=== PATIENT | female | born 2000 | race Caucasian/White ===

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

== ENCOUNTER 2022-03-17 15:46 | Emergency (ER) | payer OTHER ==
[~2022-03-17] VITALS: Ht 175.3 cm; Wt 72.6 kg
[2022-03-17] MEDS ORDERED: CEPH500 PO (16:18)
== END 2022-03-17 16:45 | disposition home or self-care (01) ==
LOC: ER 15:46
DX: L02.413 Cutaneous abscess of right upper limb (principal); L03.113 Cellulitis of right upper limb; Z87.891 Personal history of nicotine dependence
CPT/HCPCS: A9270

== ENCOUNTER 2022-07-30 20:47 | Emergency (ER) | payer OTHER ==
[~2022-07-30] VITALS: Ht 175.3 cm; Wt 72.6 kg
[2022-07-30] MEDS ORDERED: Amoxicillin875 MG PO (22:23)
== END 2022-07-30 22:32 | disposition home or self-care (01) ==
LOC: ER 20:47
DX: J02.0 Streptococcal pharyngitis (principal)
CPT/HCPCS: 87430; A9270

== ENCOUNTER → 2022-09-13 | Outpatient (CLI) | payer OTHER ==
[~2022-09-13] MED LIST changes: +Amoxicillin875 MG PO
[2022-09-14 10:36] LABS: Candida species (DNA Probe) Negative (NEGATIVE); G. vaginalis (DNA Probe) Positive (NEGATIVE); T. vaginalis (DNA Probe) Negative (NEGATIVE)
[2022-09-15 08:11] LABS: CHLAMYDIA TRACHOMATIS, NAA Negative (Negative)
== END | disposition home or self-care (01) ==
LOC: LAB 14:02 → LAB SHORT 14:02
PROVIDERS: Advanced Practice Midwife
DX: Z11.3 Encounter for screening for infections with a predominantly sexual mode of transmission (principal); N76.0 Acute vaginitis
CPT/HCPCS: 87480; 87491; 87510; 87591; 87660

== ENCOUNTER → 2022-10-27 | Outpatient (CLI) | payer OTHER ==
[2022-10-29 01:09] LABS: CHLAMYDIA TRACHOMATIS, NAA Negative (Negative)
== END | disposition home or self-care (01) ==
LOC: LAB 11:55 → LAB SHORT 11:55
PROVIDERS: Advanced Practice Midwife
DX: Z11.3 Encounter for screening for infections with a predominantly sexual mode of transmission (principal)
CPT/HCPCS: 87491; 87591

== ENCOUNTER → 2022-11-24 | Outpatient (CLI) | payer OTHER | END | disposition home or self-care (01) | LOC: LAB SHORT 15:20 → LAB 15:20 | DX: N39.0 Urinary tract infection, site not specified (principal) | CPT/HCPCS: 87086 ==

== ENCOUNTER → 2023-01-10 | Outpatient (CLI) | payer OTHER | END | disposition home or self-care (01) | LOC: LAB 18:14 → LAB SHORT 18:14 | DX: N39.0 Urinary tract infection, site not specified (principal) | CPT/HCPCS: 87077; 87086; 87186 ==

== ENCOUNTER 2023-05-29 14:53 | Inpatient (IN) | payer OTHER ==
[2023-05-29] VITALS (14 sets, daily range): BP systolic 96–130; BP diastolic 67–87
[~2023-05-29] VITALS: Ht 175.3 cm; Wt 80.9 kg
[2023-05-29] MEDS ORDERED: BIKTARVY 50-201 EAC1 PO (16:02)
[2023-05-29 16:25] LABS: BASOPHILS ABSOLUTE AUTO 0.03 K/mm3 (0.00-0.23); BASOPHILS PERCENT AUTO 0 % (0-2); EOSINOPHILS PERCENT AUTO 0 % (0-6); Hematocrit 34.6 % (33.0-51.0); Hemoglobin 11.6 g/dL (11.5-16.0); IMMATURE GRAN ABSOLUTE AUTO 0.09 K/mm3 (0.00-0.10); IMMATURE GRAN PERCENT AUTO 1 % (0-1); LYMPHOCYTES ABSOLUTE AUTO 1.66 K/mm3 (0.84-5.20); LYMPHOCYTES PERCENT AUTO 11 % (21-46); MONOCYTES ABSOLUTE AUTO 0.94 K/mm3 (0.16-1.47); MONOCYTES PERCENT AUTO 6 % (4-13); Mean Corpuscular HGB 27.1 pg (26.0-34.0); Mean Corpuscular HGB Conc 33.5 g/dL (31.5-36.5); Mean Corpuscular Volume 81 fL (80-100); Mean Platelet Volume 12.6 fL (9.1-12.4); NEUTROPHILS ABSOLUTE AUTO 12.52 K/mm3 (1.96-9.15); NEUTROPHILS PERCENT AUTO 82 % (41-73); Platelet Count 198 K/mm3 (150-400); RDW Coefficient Variation 15.6 % (11.7-14.2); RDW Standard Deviation 45.6 fL (35.1-46.3); Red Blood Cell Count 4.28 M/mm3 (3.80-5.20); White Blood Cell Count 15.24 K/mm3 (4.00-11.30)
[2023-05-29 16:31] LABS: U Amphetamine Screen DETECTED; U Barbituate Screen Not Detected; U Benzodiazapine Screen Not Detected; U Buprenorphine Screen Not Detected; U Cannabinoids Screen Not Detected; U Cocaine Screen Not Detected; U Methadone Screen Not Detected; U Methamphetamine Screen DETECTED; U Opiates Screen Not Detected; U Oxycodone Screen Not Detected; U Phencyclidine Screen Not Detected; U Propoxyphene Screen Not Detected
[2023-05-29 16:44] LABS: Albumin, Blood 1.8 g/dL (3.4-5.0); Albumin/Globulin Ratio 0.4 (0.8-1.8); Bilirubin, Total 0.4 mg/dL (0.1-1.0); Bun/Creatinine Ratio 11.7 (12.0-20.0); Calcium, Blood 8.5 mg/dL (8.5-10.1); Creatinine, Blood 0.94 mg/dL (0.40-1.00); Globulin, Blood 4.9 g/dL (2.2-4.0); Potassium, Blood 3.5 mmol/L (3.5-5.5); Total Protein, Blood 6.7 g/dL (6.4-8.2)
--- NOTE | 2023-05-29 18:02 | NUR ---
05/29/231801 Riki Riggins I PT ARRIVED TO OR. PROVIDER PERFORMED A PELVIC EXAM AND DETERMINED THAT PT HAD PROGRESSED. A VAGINAL DELIVERY WAS THEN PERFORMED. NO SURGICAL INTERVENTIONS PROVIDED. UMBILICAL CORD BLOOD GIVEN TO NURSERY STAFF.
[2023-05-30 00:34] VITALS: BP 128/75
--- NOTE | 2023-05-30 01:01 | NUR ---
2044: PATIENT REFUSED FUNDAL MASSAGE. INFORMED PATIENT ABOUT COMPLICATIONS OF NOT GETTING FUNDAL MASSAGE SUCH HEMORRHAGE. PATIENT STATES "I DONT THINK I AM GOING TO BLEED, I AM FINE."
--- NOTE | 2023-05-30 04:21 | NUR ---
0125: CONTACTED [facility]PS, TALKED TO FERMIN KATZ: SCREENING REPORT #[id number]
[2023-05-30 05:59] VITALS: BP 110/70
[2023-05-30 08:41] VITALS: BP 119/88
--- NOTE | 2023-05-30 10:31 | NUR ---
PATIENT HAS BEEN ASLEEP MOST OF THIS SHIFT, WILL AROUSE BRIEFLY FOR A BLOOD PRESSURE, REFUSES FUNDUS CHECKS, SIGNED PAPERWORK FOR PATERNITY AND CERTIFICATE ATTEMPTED TO DO D/C INSTRUCTIONS, CARMENCITA REYNOLDS IN ROOM COOPERATIVE AND ALERT INFORMATION GIVEN TO BOTH FAMILY MEMBERS, ED FROM [facility] CALLED SAID HE WOULD BE IN TO SEE PATIENT TODAY IF SHE IS STILL HERE, PATIENT IS DISCHARGED BUT HAS NOT BEEN AWAKE ENOUGH TO LEAVE
[2023-05-30 11:30] VITALS: BP 126/88
--- NOTE | 2023-05-30 12:13 | NUR ---
ED HERE FROM [facility]PS TO SEE PATIENT, PATIENT FALLING ASLEEP THROUGH MOST OF VISIT, FOB ADMITTING TO USING WELL HE IS AWAKE AND ALERT, VSS ON PATIENT, AGAIN TOLD PATIENT SHE IS DISCHARGED AND CAN GO SHE WILL NOT ACHNOWLEDGE RN AND FALLS BACK ASLEEP,
--- NOTE | 2023-05-30 14:14 | NUR ---
PATIENT ASLEEP WILL AWAKE WITH VERBAL COMMANDS, ALONE IN ROOM AT THIS TIME HAS BEEN TOLD SHE IS DISCHARGED, NO RESPONSE AND BACK TO SLEEP
[2023-05-30 14:15] VITALS: BP 139/72
[2023-05-30 15:36] VITALS: BP 126/83
--- NOTE | 2023-05-30 15:36 | NUR ---
PATIENT ALONE IN ROOM ASLEEP WILL WAKE WITH MULTIPLE VERBAL QUES, AGAIN TOLD HER SHE HAS BEEN DISCHARED SHE STATES SHE DOESNT WANT TO GO BECAUSE THEY WILL MAKE HER GET HIGH ENCOURAGED TO GO TO ANOTHER LOCATION, SHE IS CURRENTLY TRYING TO FIND A RIDE, RN WILL CALL A TAXI IF UNABLE TO FIND RIDE
--- NOTE | 2023-05-30 16:28 | NUR ---
patient was told additional 3 more times she has been discharge for hours and asked if she had a ride she said no, she gave the addressof [address] in [place], taxi was called, patient refused to get up and get dressed, after continuing to let her know a Taxi was called and is here to pick her up provided by [employer] she got up and planned to wear hospital gown out, RN instructed her she needed to get dressed she stated she was to tired RN offered to help her get dressed she said she would do it herself and got dressed, 2 RNs packed up her belongings and waited with her for taxi to come, patient and belongings loaded into taxi and patient d/c to requested address
--- NOTE | 2023-06-01 09:43 | NUR ---
PPFU - PT DID NOT COME TO SCHEDULED PPFU. RN CALLED PHONE NUMBER LISTED, PT'S MOM ANSWERED PHONE AND STATES "DAMARIS IS ON HER WAY TO [place] TO SEE BABY". PT'S MOM STATES SHE WILL GIVE HER THE MESSAGE TO CALL BACK TO RESCHEDULE F/U.
== END 2023-05-30 16:20 | disposition home or self-care (01) | DRG 806 ==
LOC: OBS 14:53 → BC 14:55 → OBS 15:22 → BC 23:22
PROVIDERS: ADMIT Obstetrics & Gynecology
PROC: 3E0R3BZ Introduction of Anesthetic Agent into Spinal Canal, Percutaneous Approach (ICD-10-PCS; 2023-05-29)
PROC: 00HU33Z Insertion of Infusion Device into Spinal Canal, Percutaneous Approach (ICD-10-PCS; 2023-05-29)
PROC: 0KQM0ZZ Repair Perineum Muscle, Open Approach (ICD-10-PCS; 2023-05-29)
PROC: 10E0XZZ Delivery of Products of Conception, External Approach (ICD-10-PCS; principal; 2023-05-29 17:30)
DX: O99.344 Other mental disorders complicating childbirth (principal); O98.42 Viral hepatitis complicating childbirth; Z37.0 Single live birth; O99.324 Drug use complicating childbirth; O98.72 Human immunodeficiency virus [HIV] disease complicating childbirth; F41.8 Other specified anxiety disorders; Z21 Asymptomatic human immunodeficiency virus [HIV] infection status; F11.90 Opioid use, unspecified, uncomplicated; F15.90 Other stimulant use, unspecified, uncomplicated; F12.90 Cannabis use, unspecified, uncomplicated; O99.334 Smoking (tobacco) complicating childbirth; F17.210 Nicotine dependence, cigarettes, uncomplicated; B18.2 Chronic viral hepatitis C; O69.1XX0 Labor and delivery complicated by cord around neck, with compression, not applicable or unspecified; O70.1 Second degree perineal laceration during delivery; Z79.899 Other long term (current) drug therapy; Z3A.39 39 weeks gestation of pregnancy; Z59.00 Homelessness unspecified
CPT/HCPCS: 36415; 80053; 85025; 86317; 86592; 86850; 86900; 86901; 86923; A9270; J0456; J0690; J2590; J2765; J3010; J7050; J7120

== ENCOUNTER → 2023-10-12 | Outpatient (CLI) | payer OTHER ==
[~2023-10-12] MED LIST changes: +BIKTARVY 50-201 EAC1 PO
== END ==
LOC: LAB SHORT 11:42 → LAB 11:42
DX: J02.9 Acute pharyngitis, unspecified (principal)
CPT/HCPCS: 87081

== ENCOUNTER 2024-05-24 15:07 | Emergency (ER) | payer OTHER ==
[~2024-05-24] VITALS: Ht 175.3 cm; Wt 70.3 kg
[2024-05-24 15:16] VITALS: BP 99/73
[2024-05-24] MEDS ORDERED: NS 1,000 ML IV SCH (15:30)
[2024-05-24] MEDS ORDERED: CefTRIAXone Sodium 1,000 MG in NS 100 ML IV ONE (15:35)
[2024-05-24 16:40] LABS: BASOPHILS ABSOLUTE AUTO 0.05 K/mm3 (0.00-0.23); BASOPHILS PERCENT AUTO 0 % (0-2); EOSINOPHILS ABSOLUTE AUTO 0.08 K/mm3 (0.00-0.68); EOSINOPHILS PERCENT AUTO 1 % (0-6); Hematocrit 39.2 % (33.0-51.0); Hemoglobin 12.6 g/dL (11.5-16.0); IMMATURE GRAN ABSOLUTE AUTO 0.03 K/mm3 (0.00-0.10); IMMATURE GRAN PERCENT AUTO 0 % (0-1); LYMPHOCYTES ABSOLUTE AUTO 3.07 K/mm3 (0.84-5.20); LYMPHOCYTES PERCENT AUTO 25 % (21-46); MONOCYTES ABSOLUTE AUTO 0.82 K/mm3 (0.16-1.47); MONOCYTES PERCENT AUTO 7 % (4-13); Mean Corpuscular HGB Conc 32.1 g/dL (31.5-36.5); Mean Corpuscular Volume 90 fL (80-100); Mean Platelet Volume 9.2 fL (9.1-12.4); NEUTROPHILS ABSOLUTE AUTO 8.46 K/mm3 (1.96-9.15); NEUTROPHILS PERCENT AUTO 68 % (41-73); Platelet Count 384 K/mm3 (150-400); RDW Coefficient Variation 14.6 % (11.7-14.2); RDW Standard Deviation 47.9 fL (35.1-46.3); Red Blood Cell Count 4.34 M/mm3 (3.80-5.20); White Blood Cell Count 12.51 K/mm3 (4.00-11.30)
[2024-05-24 16:43] LABS: Albumin, Blood 3.5 g/dL (3.4-5.0); Albumin/Globulin Ratio 0.7 (0.8-1.8); Bilirubin, Total 0.5 mg/dL (0.1-1.0); Bun/Creatinine Ratio 11.3 (12.0-20.0); Calcium, Blood 9.3 mg/dL (8.5-10.1); Creatinine, Blood 0.53 mg/dL (0.40-1.00); Globulin, Blood 5.1 g/dL (2.2-4.0); Potassium, Blood 4.1 mmol/L (3.5-5.5); Total Protein, Blood 8.6 g/dL (6.4-8.2)
[2024-05-24] MEDS ORDERED: CEPH500 PO (16:52)
[2024-05-24] MEDS ORDERED: Bactrim Ds Tab1 EACH PO (16:52)
== END 2024-05-24 17:12 | disposition home or self-care (01) ==
LOC: ER 15:07
PROVIDERS: Physician Assistant
DX: L03.114 Cellulitis of left upper limb (principal); Z87.891 Personal history of nicotine dependence
CPT/HCPCS: 73120; 80053; 85025; 96365; 99283-25; J0696; J7030

== ENCOUNTER 2024-05-25 14:19 | Emergency (ER) | payer OTHER ==
[~2024-05-25] VITALS: Ht 175.3 cm; Wt 59.0 kg
[~2024-05-25 14:19] MED LIST changes: +Bactrim Ds Tab1 EACH PO
[2024-05-25 14:32] VITALS: BP 113/70
== END 2024-05-25 15:51 | disposition left against medical advice (07) ==
LOC: ER 14:19
DX: M79.89 Other specified soft tissue disorders (principal); Z53.21 Procedure and treatment not carried out due to patient leaving prior to being seen by health care provider
CPT/HCPCS: 99281

== ENCOUNTER 2024-05-25 19:10 | Emergency (ER) | payer OTHER ==
[~2024-05-25] VITALS: Ht 170.2 cm; Wt 81.7 kg
[2024-05-25] MEDS ORDERED: Ketorolac Tromethamine 30mg Vial IV ONE (20:00)
[2024-05-25 20:38] LABS: BASOPHILS ABSOLUTE AUTO 0.04 K/mm3 (0.00-0.23); BASOPHILS PERCENT AUTO 0 % (0-2); EOSINOPHILS PERCENT AUTO 1 % (0-6); Hematocrit 35.5 % (33.0-51.0); Hemoglobin 11.6 g/dL (11.5-16.0); IMMATURE GRAN ABSOLUTE AUTO 0.01 K/mm3 (0.00-0.10); IMMATURE GRAN PERCENT AUTO 0 % (0-1); LYMPHOCYTES ABSOLUTE AUTO 2.83 K/mm3 (0.84-5.20); LYMPHOCYTES PERCENT AUTO 30 % (21-46); MONOCYTES ABSOLUTE AUTO 0.54 K/mm3 (0.16-1.47); MONOCYTES PERCENT AUTO 6 % (4-13); Mean Corpuscular HGB Conc 32.7 g/dL (31.5-36.5); Mean Corpuscular Volume 89 fL (80-100); Mean Platelet Volume 9.5 fL (9.1-12.4); NEUTROPHILS ABSOLUTE AUTO 6.06 K/mm3 (1.96-9.15); NEUTROPHILS PERCENT AUTO 63 % (41-73); Platelet Count 384 K/mm3 (150-400); RDW Coefficient Variation 14.5 % (11.7-14.2); RDW Standard Deviation 47.1 fL (35.1-46.3); White Blood Cell Count 9.58 K/mm3 (4.00-11.30)
[2024-05-25 20:42] LABS: Albumin/Globulin Ratio 0.7 (0.8-1.8); Bilirubin, Total 0.3 mg/dL (0.1-1.0); Bun/Creatinine Ratio 9.3 (12.0-20.0); Calcium, Blood 8.7 mg/dL (8.5-10.1); Creatinine, Blood 0.65 mg/dL (0.40-1.00); Globulin, Blood 4.3 g/dL (2.2-4.0); Potassium, Blood 3.7 mmol/L (3.5-5.5); Total Protein, Blood 7.3 g/dL (6.4-8.2)
[2024-05-26] MEDS ORDERED: CefTRIAXone 1000 MG Vial IM ONE (00:25)
[2024-05-26] MEDS ORDERED: CefTRIAXone Sodium 1,000 MG in NS 100 ML IV ONE (00:25)
[2024-05-26 00:57] VITALS: BP 108/68
== END 2024-05-26 00:58 | disposition home or self-care (01) ==
LOC: ER 19:10
PROVIDERS: Physician Assistant
DX: L03.012 Cellulitis of left finger (principal); L02.512 Cutaneous abscess of left hand; Z87.891 Personal history of nicotine dependence
CPT/HCPCS: 73201; 80053; 85025; 96365; 96375; 99284-25; J0696; J1885; Q9967

== ENCOUNTER 2024-06-27 23:47 | Observation (INO) | payer OTHER ==
[~2024-06-27] VITALS: Ht 172.7 cm; Wt 67.4 kg
[2024-06-28 00:47] LABS: BASOPHILS ABSOLUTE AUTO 0.06 K/mm3 (0.00-0.23); BASOPHILS PERCENT AUTO 0 % (0-2); EOSINOPHILS ABSOLUTE AUTO 0.04 K/mm3 (0.00-0.68); EOSINOPHILS PERCENT AUTO 0 % (0-6); Hematocrit 42.6 % (33.0-51.0); Hemoglobin 13.8 g/dL (11.5-16.0); IMMATURE GRAN ABSOLUTE AUTO 0.07 K/mm3 (0.00-0.10); IMMATURE GRAN PERCENT AUTO 0 % (0-1); LYMPHOCYTES ABSOLUTE AUTO 3.19 K/mm3 (0.84-5.20); LYMPHOCYTES PERCENT AUTO 18 % (21-46); MONOCYTES ABSOLUTE AUTO 1.29 K/mm3 (0.16-1.47); MONOCYTES PERCENT AUTO 7 % (4-13); Mean Corpuscular HGB 28.3 pg (26.0-34.0); Mean Corpuscular HGB Conc 32.4 g/dL (31.5-36.5); Mean Corpuscular Volume 88 fL (80-100); Mean Platelet Volume 9.5 fL (9.1-12.4); NEUTROPHILS ABSOLUTE AUTO 13.03 K/mm3 (1.96-9.15); NEUTROPHILS PERCENT AUTO 74 % (41-73); Platelet Count 359 K/mm3 (150-400); RDW Coefficient Variation 15.6 % (11.7-14.2); RDW Standard Deviation 50.2 fL (35.1-46.3); Red Blood Cell Count 4.87 M/mm3 (3.80-5.20); White Blood Cell Count 17.68 K/mm3 (4.00-11.30)
[2024-06-28 01:08] LABS: Albumin, Blood 3.4 g/dL (3.4-5.0); Albumin/Globulin Ratio 0.6 (0.8-1.8); Bilirubin, Total 0.7 mg/dL (0.1-1.0); Bun/Creatinine Ratio 20.6 (12.0-20.0); Calcium, Blood 9.7 mg/dL (8.5-10.1); Creatinine, Blood 0.68 mg/dL (0.40-1.00); Globulin, Blood 5.5 g/dL (2.2-4.0); Potassium, Blood 3.8 mmol/L (3.5-5.5); Total Protein, Blood 8.9 g/dL (6.4-8.2)
[2024-06-28] MEDS ORDERED: NS 1,000 ML IV SCH (02:40)
[2024-06-28] MEDS ORDERED: CefTRIAXone Sodium 1,000 MG in NS 50 ML IV ONE (02:40)
[2024-06-28] MEDS ORDERED: Diphth,Pertuss(Acell),Tet Vac 0.5 ML VIAL IM ONE (02:45)
[2024-06-28] MEDS ORDERED: Vancomycin HCL 1,500 MG in NS 250 ML IV ONE (03:25)
[2024-06-28] MEDS ORDERED: Ondansetron HCl 2 MG / ML 2ML Vial IV PRN (04:35)
[2024-06-28] MEDS ORDERED: FLU VACC TS2024-25(6MOS UP)/PF 45 MCG/0.5 ML SYRINGE IM ONE (04:35)
[2024-06-28] MEDS ORDERED: Acetaminophen 325 MG TABLET PO PRN (04:40)
[2024-06-28] MEDS ORDERED: Lactated Ringer's 1,000 ML IV SCH (05:00)
[2024-06-28] MEDS ORDERED: Ketorolac Tromethamine 15mg Vial IV PRN (05:45)
[2024-06-28 05:58] VITALS: BP 113/71
--- NOTE | 2024-06-28 06:29 | NUR ---
ADMIT NOTE HANDOFF RECEIVED FROM RESIDENTIAL DOOR UNIT INSTALLERSANTOS PARKER. PT ARRIVED TO FLOOR VIA GURNEY. ADMITTED THIS SHIFT FOR FACIAL CELLULITIS/SEPSIS. PT ORIENTED TO UNIT. PERSONAL POSSESSIONS WITH PT. IV FLUIDS STARTED ORDERED. 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 IV ANTIB RX ARE SCHEDULED. SHE IS A&O X3, ON RA. HX OF IV DRUG USE, HIV+, HEP C+. IV PAIN RX GIVEN THIS SHIFT.
[2024-06-28 07:33] VITALS: BP 103/60
[2024-06-28] MEDS ORDERED: BIKTARVY PO SCH (09:00)
[2024-06-28] MEDS ORDERED: Lactobacil 2-S.Thermo-Bifido 1 1 Cap PO SCH (09:00)
[2024-06-28] MEDS ORDERED: CeFAZolin Sodium 2,000 MG in NS 100 ML IV SCH (09:30)
--- NOTE | 2024-06-28 10:42 | NUR ---
NURSING NOTE: PT REFUSED ASSESSMENT AND BLOOD DRAW. PT VOMITED AFTER DRINKING BUT REFUSED ZOFRAN. ALLOWED TO HANG ANTIBIOTIC. NOTIFIED.
[2024-06-28] MEDS ORDERED: Vancomycin HCL 1,000 MG in NS 250 ML IV SCH (12:00)
[2024-06-28 15:15] VITALS: BP 97/64
[2024-06-28] MEDS ORDERED: NS 250 ML IV PRN (16:05)
--- NOTE | 2024-06-28 16:18 | NUR ---
PT IS AOX4 AND INDEPENDENT IN ROOM. PT HAS REFUSED BLOOD DRAWS AND WHEN INSTRUCTED ON THE IMPORTANCE OF THEM DOES NOT SEEM TO WANT TO UNDERSTAND. PT REFUSED ASSESSMENT BY SANTOS STUBBS AT THE START OF SHIFT, BUT DID LET THIS [employer] CABLE SPLICER DO AN ASSESSMENT. VAPE PEN FOUND ON FLOOR IN ROOM AND PT WAS EDUCATED ON THE HOSPITAL POLICY REGARDING VAPE PENS. PT DID ALLOW THIS [employer] CABLE SPLICER TO LOCK PEN IN DRAWER. PT OFFERED NICOTINE PATCH, BUT REFUSE. PT'S CHIN IS RED AND SMALL AMOUNT OF SEROSANUINOUS FLUID PT IS USING GAUZE TO WIPE. DID NOT LEAVE BANDAGE ON. CALL LIGHT IS IN REACH. PT IS ABLE TO MAKE NEEDS KNOWN. WILL CONTINUE TO MONITOR.
[2024-06-28 18:25] LABS: U Amphetamine Screen DETECTED; U Barbituate Screen Not Detected; U Benzodiazapine Screen Not Detected; U Buprenorphine Screen Not Detected; U Cannabinoids Screen Not Detected; U Cocaine Screen Not Detected; U Methadone Screen Not Detected; U Methamphetamine Screen DETECTED; U Opiates Screen Not Detected; U Oxycodone Screen Not Detected; U Phencyclidine Screen Not Detected
[2024-06-28 19:51] VITALS: BP 108/74
--- NOTE | 2024-06-29 00:02 | NUR ---
PT OPTED TO LEAVE AGAINST MEDICAL ADVICE. FORM COMPLETED AND SIGNED BY PATIENT AND THIS RN. THIS RN DISCUSSED THE RISKS OF LEAVING AMA AND PT VERBALIZED UNDERSTANDING OF THIS. FORM PLACED IN PT CHART.
[2024-07-02 15:26] LABS: HIV-1 QNT BY NAAT INTERP Detected (Not Detected); HIV-1 QNT NAAT (LOG COPIES/ML) <1.47
[2024-07-02 21:01] LABS: HIV SEROLOGIC INTERPRETATION Pos HIV-1 Ab; HIV-1 ANTIBODY Positive (Negative); HIV-2 ANTIBODY Negative (Negative)
[2024-07-02 21:02] LABS: HIV 1,2 COMBO ANTIGEN/ANTIBODY Reactive (Negative)
[2024-07-06 14:10] LABS: % CD4 47 % (32-64); ABSOLUTE CD4 1196 cells/uL (430-1800)
== END 2024-06-28 21:33 | disposition left against medical advice (07) ==
LOC: ER 23:47 → MEDS 23:48 → ER 06-28 04:32 → MEDS 06-28 04:32
PROVIDERS: Student in an Organized Health Care Education/Training Program; ADMIT Student in an Organized Health Care Education/Training Program
DX: A41.9 Sepsis, unspecified organism (principal); L03.211 Cellulitis of face; L02.01 Cutaneous abscess of face; Z21 Asymptomatic human immunodeficiency virus [HIV] infection status; B19.20 Unspecified viral hepatitis C without hepatic coma; F19.10 Other psychoactive substance abuse, uncomplicated; Z87.891 Personal history of nicotine dependence; Z79.899 Other long term (current) drug therapy
CPT/HCPCS: 36415; 80053; 81025; 85025; 86361; 86701; 86702; 87040; 87070; 87077; 87147; 87186; 87205; 87389; 87536; 90715; 96365; 96366; 96367; 99284-25; A9270; G0378; J0690; J0696; J1885; J3370; J7030; J7050; J7120

== ENCOUNTER → 2024-12-23 | Outpatient (CLI) | payer OTHER | LOC: LAB SHORT 17:35 → LAB 17:35 | DX: N39.0 Urinary tract infection, site not specified (principal) | CPT/HCPCS: 87077; 87086; 87186 ==

== ENCOUNTER → 2025-05-01 | Outpatient (CLI) | payer OTHER | LOC: LAB SHORT 13:00 → LAB 13:00 | DX: R30.0 Dysuria (principal) | CPT/HCPCS: 87086 ==